=== PATIENT | female | born 1965 | race Caucasian/White ===

== ENCOUNTER 2022-09-25 06:00 | Day surgery (SDC) | payer BC ==
[~2022-09-25] VITALS: Ht 149.9 cm; Wt 90.7 kg
[2022-09-25] MEDS ORDERED: CEFAZOLIN SOD 2 GM in D5W 50 ML IV ONE (07:00)
[2022-09-25] MEDS ORDERED: PROPOFOL 200MG/ 20ML VIAL (DIPRIVAN) IV ONE (07:30)
[2022-09-25] MEDS ORDERED: NS IRRIG SOLN 1000 ML IR ONE (07:30)
[2022-09-25] MEDS ORDERED: NEOSTIGMINE METHYLSULFATE 1 MG/ML, 10 ML VIAL ONE (07:30)
[2022-09-25] MEDS ORDERED: GLYCOPYRROLATE 0.2 MG/ML VIAL ONE (07:30)
[2022-09-25] MEDS ORDERED: BUPIVACAINE /PF 0.5% 30 ML VIAL ONE (07:30)
[2022-09-25] MEDS ORDERED: WATER FOR IRRIGATION,STERILE 1,000 ML IRRIG.SOLN IR ONE (07:30)
[2022-09-25] MEDS ORDERED: SEVOFLURANE 15 MIN GAS INH ONE (07:30)
[2022-09-25] MEDS ORDERED: DEXAMETHASONE SOD PHOSPHATE 4 MG/ML VIAL ONE (07:30)
[2022-09-25] MEDS ORDERED: ONDANSETRON HCL 4 MG/2 ML VIAL ONE (07:30)
[2022-09-25] MEDS ORDERED: LR 1,000 ML IV.SOLN IV ONE (07:30)
[2022-09-25] MEDS ORDERED: SUCCINYLCHOLINE CHLORIDE 20 MG/ML(QUELICIN) ONE (07:30)
[2022-09-25] MEDS ORDERED: ROCURONIUM BROMIDE 10 MG/ML (ZEMURON) ONE (07:30)
[2022-09-25] MEDS ORDERED: HYDROmorphone 1 MG/ML INJ. CARTRIDGE IVP PRN (09:00)
[2022-09-25] MEDS ORDERED: KETOROLAC TROMETHAMINE 30 MG VIAL IVP PRN (09:00)
[2022-09-25] MEDS ORDERED: ACETAMINOPHEN 325 MG TABLET PO ONE (09:00)
[2022-09-25] MEDS ORDERED: METOCLOPRAMIDE HCL 10 MG/2 ML VIAL IVP PRN (09:00)
[2022-09-25] MEDS ORDERED: ONDANSETRON HCL 4 MG/2 ML VIAL IVP PRN (09:00)
[2022-09-25] MEDS ORDERED: HYDROmorphone 1 MG/ML INJ. CARTRIDGE ONE ×2 (09:42→10:19)
[2022-09-25 12:40] VITALS: BP_SYST 105
== END 2022-09-25 12:40 | disposition home or self-care (01) ==
LOC: SDS 06:00 → SMU 06:00 → SDS 12:40
PROVIDERS: ATTEND Surgery
DX: K80.10 Calculus of gallbladder with chronic cholecystitis without obstruction (principal); K21.9 Gastro-esophageal reflux disease without esophagitis; E03.9 Hypothyroidism, unspecified; E66.01 Morbid (severe) obesity due to excess calories; G43.909 Migraine, unspecified, not intractable, without status migrainosus; G47.00 Insomnia, unspecified; E78.5 Hyperlipidemia, unspecified; E11.9 Type 2 diabetes mellitus without complications; Z68.39 Body mass index [BMI] 39.0-39.9, adult; Z79.899 Other long term (current) drug therapy; Z98.84 Bariatric surgery status; Z98.890 Other specified postprocedural states
CPT/HCPCS: 87081; 47562; 82962; 88304; J3490 ×2; J0690; J1100; J2405; J2704; J0330; J1170; J7060; J7120; J2710; C1727; Q9967